=== PATIENT | male | born 1965 | race Caucasian/White ===

== ENCOUNTER 2020-10-11 10:32 | Emergency (ER) | payer MEDICAID ==
[~2020-10-11] VITALS: Ht 162.6 cm; Wt 113.4 kg
[2020-10-11 10:37] VITALS: BP_SYST 138
--- NOTE | 2020-10-11 10:37 | NUR ---
Patient to [facility] for evaluation. Side rails up. Report given to ANDREZ Oconnell.
--- NOTE | 2020-10-11 10:40 | NUR ---
pt. brought in by law enforcement for clearance to book, VSS, does have sores to both arms in varius stages of healing, none open at this time, pt. states uncomfortable but tolerable, denies sores on any other aspect of body.
--- NOTE | 2020-10-11 10:42 | NUR ---
ER at bedside examining patient.
--- NOTE | 2020-10-11 10:45 | NUR ---
Patient given written and verbal discharge instructions and verbalizes understanding. Dr. Detn spoke with pt. regarding arm sores. Patient in stable condition. Pain Scale 0. Opportunity for questions provided and answered.
[2020-10-11 10:50] VITALS: BP_SYST 138
== END 2020-10-11 10:45 ==
LOC: SED 10:32
DX: Z02.89 Encounter for other administrative examinations (principal); F11.90 Opioid use, unspecified, uncomplicated
CPT/HCPCS: 99283